=== PATIENT | female | born 1945 | race Caucasian/White ===

== ENCOUNTER 2019-07-07 05:51 | Day surgery (SDC) | payer MEDICARE, SELFPAY ==
[2019-07-07] VITALS (8 sets, daily range): BP systolic 106–145; BP diastolic 51–69; PULSE 62–77; RESP 14–16; TEMP 36.3–37; O2SAT 92–100; BMI 26.8
[2019-07-07] MEDS: Lactated Ringers 1,000 ML 100 ML IV (06:57)
[2019-07-07] MEDS: Vancomycin IV 1,000 MG/200 ML BAG 200 MG IV (07:00)
--- NOTE | 2019-07-07 09:00 | RAD_ITS ---
STUDY: X-RAY - LEFT ANKLE REASON FOR EXAM: Female, 73 years old. REMOVAL EXTERNAL FIXATION, ORIF LEFT ANKLE TECHNIQUE: 3 view(s) of the ankle. COMPARISON: None. Intraoperative fluoroscopic images provided for open reduction and internal fixation of the distal left fibular fracture and screw fixation of the medial malleolar fracture. RAD/Ankle min 3 Views IMPRESSION: Intraoperative fluoroscopic imaging provided for open reduction internal fixation of the bimalleolar fracture. Electronically Signed: Ronen Hickey, at 14:14 EDT , Service support ,
[2019-07-07] MEDS: Bupivacaine Mpf 0.5% 30 ML VIAL (09:12)
--- NOTE | 2019-07-07 12:24 | PCM.DC.ORTHO ---
Discharge Diet: No Restrictions Discharge Activity: May Not Drive, May Not Shower, Use Walker, Use Crutches Weight Bearing Status: No weight bearing Keep extremity elevated above heart level: Left Leg Additional Activity Instructions:: 1. Keep dressing to left leg clean, dry, intact. Do not get dressing wet. If get dressing wet, call office for further instructions. Reinforce dressing as needed with 4 x 4's, ABD pads, Kerlix, Stefan bandage. 2. I recommend sponge bathing only at this time. 3. Ice around left knee 20 minutes on, 20 minutes off, every hour while you are awake until follow-up appointment. 4. Elevate left foot above the level of heart at all times when not ambulating. 5. Do not place any weight on left foot. No walking or standing on left foot. Use crutches/walker/assistive devices for assistance. 6. Continue taking oral antibiotics, doxycycline, as instructed. 7. Begin the Lovenox injections tomorrow, July 08, 2019. 8. Begin taking pain medication today, July 07, 2019 as instructed. Can supplement with ibuprofen 200mg as needed. 9. Please call office with further questions or concerns. Call your doctor if your incision/area has: Sudden Increased Bleeding, Increased Pain/ Swelling Call your doctor if you observe: Fever of 101 or Higher, Shortness of breath, Chest pain, Increased palpitations (irregular heartbeat), Calf discomfort Cleanse incision/area with: Do not get Incision Wet, Keep Dressing Clean & Dry Allergies/Adverse Reactions: Allergies Penicillins [PCN] Allergy (Verified 07/06/19 08:38) Rash Medications to take at Discharge Aspirin 325 mg PO DAILY 07/06/19 Atorvastatin Calcium [Lipitor] 20 mg PO QHS 07/06/19 Cinnamon Bark [Cinnamon] 500 mg PO BID 07/06/19 Cranberry Conc/Ascorbic Acid [Cranberry 12,600 mg Softgel] 1 ea PO BID 07/06/19 Danielle Root 550 mg PO DAILY 07/06/19 Gymnema [place] [Gymnema Sylvestris [place]] 400 mg PO BID 07/06/19 Lisinopril 20 mg PO DAILY 07/06/19 Magnesium 200 mg PO BID 07/06/19 [place]-3/Dha/Epa/Fish Oil [Fish Oil 500 mg Softgel] 1 ea PO DAILY 07/06/19 Primary Care Physician: Edgar Linder [Primary Care Provider] - Test Results: Test results from this visit will be discussed in further detail at your follow-up appointment, if applicable. Please Follow Up With: Дмитрий Del Cid DPM When: on 07/15/2019. Proposed Discharge Date: 07/07/19
--- NOTE | 2019-07-07 12:29 | OP.PCM_ITS ---
Problem List (1) Trimalleolar fracture of ankle, closed Status: Acute Qualifiers: Encounter type: subsequent encounter Laterality: left Fracture healing: with routine healing Qualified Code(s): S82.852D - Displaced trimalleolar fracture of left lower leg, subsequent encounter for closed fracture with routine healing (2) Painful orthopaedic hardware Status: Acute (3) Dislocation of ankle, left, closed Status: Acute Qualifiers: Encounter type: subsequent encounter Qualified Code(s): S93.05XD - Dislocation of left ankle joint, subsequent encounter Report of Operation Date of Procedure: 07/07/19 Pre-Operative Diagnosis: 1. Left ankle trimalleolar fracture. 2. Left ankle joint dislocation. 3. Painful hardware left ankle Post-Operative Diagnosis: Same as preoperative Surgery/Procedure Performed:: 1. Open reduction with internal fixation of left ankle trimalleolar fracture. 2. Reduction of left ankle joint dislocation. 3. Removal of external fixator left leg/ankle/foot. Description of Surgical Findings:: Consistent with diagnosis. Reduction of deformity achieved and held with internal fixation. yarn skeins examiner: Wendy Vasquez Type of Anesthesia:: General/Regional - With a popliteal and saphenous block to the left lower extremity Anesthesiologist: Wesley Caruso Special Medications: 1 g of vancomycin given preoperatively Specimen's removed: None Drains: None Estimated Blood Loss (mL): 200 Description of Procedure: Pathology: None Anesthesia: General with a popliteal and saphenous block to left lower extremity Hemostasis: Pneumatic thigh tourniquet placed to the level of the left thigh at 300 mmHg for 127 minutes, deflated for 20 minutes, and reinflated for another 76 minutes. Estimated blood loss: 200 mL Materials: [place] 2.7 mm narrow locking straight plate with 8 holes. 2. Belkis 2.7 mm narrow locking T plate 2 x 5 holes. 3. [place] 2.7 mm x 12mm nonlocking screw x 2. 4. [place] 2.7 mm x 40mm nonlocking screw. 5. Belkis 2.7 mm x 32 mm nonlocking screw. 6. [place] 2.7 mm x 34mm nonlocking screw Belkis 2.7 x 20 mm locking screw x3 7. [place] 2.7 x 10 mm locking screw x2. 8. Belkis 2.7 x 12 mm locking screw. 9. [place] 4.0 x 50 mm partially-threaded screw. 10. Belkis 3.5 x 20 mm nonlocking screw. 11. Size 0 Vicryl. 12. Size 2-0 Vicryl. 13. Size 3-0 Vicryl. 14. Size 2-0 nylon. 15. Size 3-0 nylon. Injectables: None Complications: Significant difficulty in reducing the lateral malleolus fracture. Condition: Stable Indications: Patient is a 73-year-old female who suffered a left ankle trimalleolar fracture with dislocation on June 14, 2019. While at her home, patient fell down her stairs, causing significant pain and deformity of her left ankle. Patient presented to the emergency department for further evaluation. At that time, a closed reduction was performed. Patient lives at home alone, so patient was admitted for further evaluation and possible discharge to rehabilitation facility. At that time I was then consulted. Upon visualization of her left leg, significant fracture blisters were present. At that time, I discussed with the patient that due to the fracture blisters present and the swelling present in her left foot/ankle, no immediate internal fixation would be performed due to the increased risk of damage to the soft tissues. Due to the significant injury that was had, I recommended to the patient that an application of an external fixator with reduction of the fracture be performed to allow the soft tissue swelling to decrease and the blisters to heal. Patient was agreeable to this. This surgery was performed on June 15, 2019. Patient was then subsequently discharged to the rehabilitation facility. Patient has been following up with me on a bi-weekly basis for follow-up of these blisters and external fixator care. After seeing the patient on July 03, I believe that there was significant healing of the blisters present and that her skin was ready for definitive open reduction with internal fixation with removal of the external fixator. Patient was agreeable to this at that time. Operative report: Before the patient was brought to the operating room, the risks, benefits, possible outcomes, possible complications of the procedure were discussed with the patient. These include but not limited to delayed or nonhealing wounds, delayed or nonhealing bone, loss of function of limb, infection, loss of limb, loss of life. All the patient's questions were answered to her satisfaction and all of her concerns were addressed. No guarantees were made as to the outcome of the procedure. The patient understood all aspects of the procedure, and consent was then signed by the patient. Before the patient was brought to the operating room, the anesthesiologist administered a popliteal block to the left lower extremity. Patient was then brought to the operating room. At that time, anesthesia was obtained via general anesthesia. Anesthesia team took control the airway. Next, 5cc of 0.5% Marcaine plain was distributed by ks in a proximal saphenous nerve block fashion. At this time, the external fixator of the left lower extremity was removed in its entirety, including the pins that attached to the tibia, calcaneus, and medial cuneiform. Next the left foot, ankle, leg were then scrubbed, prepped, draped in the usual sterile manner. Attention was then directed to the 2 tibial holes left from the pins, the medial and lateral calcaneal holes, the medial cuneiform hole. These were then debrided via curette. Healthy active bleeding was noted. All of these were then irrigated with copious amounts of normal sterile saline. The skin of these pinholes were then reapproximated and coapted utilizing 2-0 nylon in a simple interrupted and horizontal mattress fashion. These were then dressed with a dry sterile dressing. Next, a well-padded pneumatic thigh tourniquet was placed to the level of the left thigh. At this time, the patient was then placed in a prone position. Care was taken to make sure that adequate padding was placed around all pressure points. Anesthesia continued to monitor the airway. The dry sterile dressing was then removed from the left lower extremity. The left foot, ankle, leg were then scrubbed, prepped, draped in the usual sterile manner. At this time, radiographic evaluation was performed to determine the level of the distal tip of the lateral malleolus, fibular fracture, posterior malleolar fracture, and medial malleolar fracture. These were then marked on the patient. Next, the left foot, ankle, leg were then elevated and exsanguinated via Esmarch and inflation with pneumatic thigh tourniquet was performed to 300 mmHg. Attention was then directed to the posterior lateral aspect of the left ankle. At this time, #15 blade was used to perform a linear longitudinal incision starting at the posterior medial aspect of the distal one third of the fibular shaft extending distally to the distal tip of the posterior medial aspect of the lateral malleolus. This incision was approximately 10 cm in length. This incision was deepened utilizing sharp and blunt dissection. Care was taken to retract all vital neural and vascular structures. All bleeders were cauterized and ligated as necessary. At this time, the peroneus longus and brevis muscles and tendons were identified. Careful dissection was performed and these muscles were pulled medially to expose the fibular fracture. At this time, a curette was used to remove any fibrous tissue contained within the fibular fracture site. Careful dissection was performed to free the fibula from soft tissue attachments, with care make taking to make sure that the posterior inferior tibiofibular ligament was intact and kept intact. Once adequate dissection was performed, the surgical site was irrigated copious amounts normal sterile saline. Next, the fibular fracture was then reduced and held via temporary fixation. This proved to be extremely difficult due to the contracture present. Radiograph evaluation was then performed. The fibula appeared out to length at this time. The fibula appeared reduced from preoperative assessment. Attention was then directed to the medial aspect of this incision. The peroneal tendons were retracted laterally. Careful dissection was performed down to the level of the posterior malleolus. The flexor hallucis longus muscle was identified and reflected medially. Care was taken make sure to not devitalized the posterior malleolus. At this time, a curette was used to remove any fibrous tissue contained in the posterior malleolus fracture site. A bone pick was used to remove any comminuted pieces that would interfere with reduction of the posterior malleolus. The surgical site was irrigated copious amounts normal sterile saline. At this time, reduction clamps were used to reduce the posterior malleolus back into anatomic position. This was then held via temporary fixation. Radiographic evaluation then performed. The posterior malleolus was noted to be back in a reduced position. Attention was then directed back to the lateral malleolus. At this time, the Belk[place] 3.5 screw was inserted in standard AO fixation as perpendicular to the fracture as possible starting from posterior inferior extending anterior and superior. Of note demonstration of the screw was adequate compression of the fracture fragment. Furthermore, no shifting any of the fragments occurred during insertion of the screw. Once the screw was fully inserted, temporary fixation was then removed. The interfragmentary screw was noted to hold the fibula in the reduced position. At this time, the [place] 2.7 narrow locking plate was placed on the posterior lateral aspect of the left fibula. Radiograph evaluation was performed to determine adequate positioning. Once adequate positioning was had, this was held via a mixture of nonlocking and locking screws. Of note during insertion of the screws was adequate compression of the plate to the bone. Furthermore, no shifting any of the fragments occurred during insertion of the screws. Once the screws were fully inserted, radiographic evaluation was then performed. The interfragmentary screw and the plate were noted to hold the fibula in the corrected reduced position. Fur[place]more, and the screws noted to either be too long or too short. At this time, the pneumatic thigh tourniquet was then released and a prompt hyperemic response noted to the entirety of the left lower extremity. All bleeders were cauterized and ligated as necessary. Attention was then directed to the medial aspect of the left ankle. At this time, the medial malleolar fracture was percutaneously reduced with a K-wire under live radiographic evaluation. Once reduction was had, a [place] Asnis 4.0 x 50 mm screw was placed over the K wire and inserted in standard AO fixation. Of note during in sertion of the screw was adequate compression of the medial malleolar fracture. Furthermore, no shifting any of the fragments occurred during insertion of the screw. Once the screw was fully inserted, the temporary fixation was then removed. Radiograph evaluation was then performed. The screws noted all the medial malleolus in the corrected reduced position. At this time, it was determined to not place a second 4.0 screw due to the minimal size of the medial malleolus fracture and the reduction obtained with the 1 screw. At this time, the left foot, ankle, leg were then elevated and exsanguinated via Esmarch inflation pneumatic thigh tourniquet was performed to 300 mmHg. Attention was then directed back to the posterior malleolus. At this time, the [place] T plate was placed on the posterior aspect of all of the tibia, with the T pointed distally. Adequate positioning was had and determined via radiographic evaluation. Once adequate positioning was performed, this was then held via temporary fixation. Once this position was had, this was fixated via mixture of nonlocking and locking screws. Of note there insertion of the screws was adequate compression of the plate to the bone. Furthermore, no shifting in the fragments occurred during insertion of the screws. Once the screws were fully inserted, all temporary fixation was then removed. Radiographic evaluation was then performed. The posterior malleolar fracture was noted to be reduced from preoperative assessment. The screws noted to not be too long or too short. The screws noted to hold the plate in the corrected reduced position. Next, the hook and cotton test were performed to evaluate the syndesmosis. There was no widening noted at the distal tibiofibular joint and the syndesmosis was deemed intact. This was done under live radiographic evaluation. At this time, radiographic evaluation was then performed once again. The fibula was noted to be out the length and the fixation was noted to hold the fibula in the reduced position. The posterior malleolus fracture was noted to be held in a reduced position via the fixation. The medial malleolus fracture was noted to be held in a reduced position via the fixation. At this time, the surgical site on the posterior lateral aspect of the leg was irrigated with copious amounts normal sterile saline. The periosteal and capsular structures were reapproximated coapted utilizing size 0 Vicryl and size 2-0 Vicryl. The subcutaneous tissue was reapproximated coapted utilizing size 2-0 Vicryl and size for 3-0 Vicryl. The skin was reapproximated coapted utilizing 3-0 nylon in a simple interrupted horizontal mattress fashion. The medial percutaneous surgical site was reapproximated coapted utilizing 3-0 nylon. At this time, pneumatic thigh tourniquet was then released and a prompt hyperemic response noted to the entirety of the left lower extremity. Each surgical site, including the external fixator pin sites, were then dressed with Betadine soaked gauze, and a dry sterile dressing consisting of 4 x 4 gauze, ABD pads, wrapped with Kerlix. The left foot ankle and leg were then wrapped with an Stefan bandage. Cast padding was wrapped in the metatarsal heads extending proximally to level just distal to the tibial tuberosity. A posterior splint was fashioned to the left lower extremity and was adhered to the left lower extremity utilizing Stefan bandages. Care was taken make sure the foot and ankle held in neutral position as the posterior splint dried. The patient tolerated the anesthesia and the procedure well and was transported to the PACU with vital signs stable and neurovascular status intact to left lower extremity. After period of postoperative monitoring, patient will be discharged back to the rehabilitation facilty with written and oral instructions for wound care and follow-up. The surgical technology instructor, the nurse practitioner, was utilized at the entire procedure. She help with patient positioning, holding of limb, holding retractors. She helped with exposure throughout. She helped with bandage application, and cast application. Without the surgical technology instructor, surgical time would have been increased and surgical outcome could have been less optimal. - Admit VTE Documentation VTE Present on Admission: No VTE Mechan Device Prophylaxis: SCD's VTE Pharm Prophylaxis ordered?: Yes
--- NOTE | 2019-07-07 13:42 | RAD_ITS ---
STUDY: X-RAY - LEFT ANKLE REASON FOR EXAM: Female, 73 years old. POST OP LEFT ANKLE. TECHNIQUE: 3 view(s) of the ankle. COMPARISON: None. FINDINGS: The patient is status post open reduction internal fixation of the distal fibular fracture and the medial malleolus fracture utilizing screw and mesh fixation device. Normal medial and lateral malleoli. Normal tibiotalar articulation and ankle mortise. Plantar spur. The visualized subtalar, talonavicular, calcaneocuboid and tarsal articulations are normal. Postoperative soft tissue swelling. RAD/Ankle min 3 Views IMPRESSION: Status post open reduction internal fixation of the distal fibula and distal tibia. There is good alignment. Postoperative soft tissue changes. Electronically Signed: Ronen Hickey, at 15:49 EDT , Service support ,
[2019-07-07] MEDS: oxyCODONE 5 MG Tablet PO (15:44)
== END 2019-07-07 18:10 | disposition home or self-care (01) ==
LOC: SDC 05:53 → AC 05:55
PROVIDERS: PCP Family Medicine; Referring Provider Podiatrist Foot & Ankle Surgery; Visit Provider Podiatrist Foot & Ankle Surgery
DX: S82.852D Displaced trimalleolar fracture of left lower leg, subsequent encounter for closed fracture with routine healing (principal); S93.05XD Dislocation of left ankle joint, subsequent encounter; W10.9XXD Fall (on) (from) unspecified stairs and steps, subsequent encounter; T84.84XA Pain due to internal orthopedic prosthetic devices, implants and grafts, initial encounter; Y83.1 Surgical operation with implant of artificial internal device as the cause of abnormal reaction of the patient, or of later complication, without mention of misadventure at the time of the procedure; Z47.2 Encounter for removal of internal fixation device; I10 Essential (primary) hypertension; I48.91 Unspecified atrial fibrillation; E78.00 Pure hypercholesterolemia, unspecified; Z78.0 Asymptomatic menopausal state; Z86.718 Personal history of other venous thrombosis and embolism; Z79.82 Long term (current) use of aspirin; Z79.899 Other long term (current) drug therapy
CPT/HCPCS: 27822; 73610; 76000; C1713; J7120; J2405

== ENCOUNTER → 2023-03-11 | Outpatient (CLI) | payer MEDICARE, SELFPAY | END | disposition home or self-care (01) | LOC: LABSPEC 15:25 | PROVIDERS: PCP Family Medicine; Referring Provider Dermatology; Visit Provider Dermatology | DX: L98.8 Other specified disorders of the skin and subcutaneous tissue (principal) | CPT/HCPCS: 87070; 87077; 87205 ==